=== PATIENT | male | born 1960 | race African-American/Black ===

== ENCOUNTER 2020-05-10 09:23 | Outpatient (CLI) | payer MEDICARE ==
[~2020-05-10] VITALS: Ht 175.3 cm; Wt 66.7 kg
[2020-05-10 10:05] VITALS: BP 144/82
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
== END 2020-05-10 11:23 | disposition home or self-care (01) ==
LOC: PAN 09:23
DX: R63.4 Abnormal weight loss (principal); F17.210 Nicotine dependence, cigarettes, uncomplicated; F12.90 Cannabis use, unspecified, uncomplicated
CPT/HCPCS: G0463

== ENCOUNTER 2020-06-20 13:57 | Outpatient (CLI) | payer MEDICARE ==
[2020-06-20 14:10] VITALS: BP 128/77
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
== END 2020-06-20 15:57 | disposition home or self-care (01) ==
LOC: PAN 13:57
DX: K57.92 Diverticulitis of intestine, part unspecified, without perforation or abscess without bleeding (principal); D64.9 Anemia, unspecified; Z89.612 Acquired absence of left leg above knee; R63.4 Abnormal weight loss
CPT/HCPCS: G0463